=== PATIENT | female | born 1990 | race Caucasian/White ===

== ENCOUNTER 2017-07-09 15:45 | Inpatient (IN) | payer OTHER ==
[2017-07-09] MEDS ORDERED: MISOPROSTOL 200 MCG TAB PR ×2 (16:30→19:30)
[2017-07-09] MEDS ORDERED: CEFAZOLIN 2 GM/50 ML (PMX) 50 ML IV (16:30)
[2017-07-09] MEDS ORDERED: CARBOPROST 250 MCG INJ IM ×2 (16:30→19:30)
[2017-07-09] MEDS ORDERED: OXYTOCIN 30 UNITS/LR 500 ML IV ×4 (16:30→19:30)
[2017-07-09] MEDS ORDERED: METHYLERGONOVINE 0.2 MG INJ IM ×2 (16:30→19:30)
[2017-07-09 16:47] LABS: ADD MAN DIFF? NO
[2017-07-09 16:49] LABS: WHITE BLOOD COUNT 9.3 10^3/ul (4.8-10.8)
[2017-07-09 16:49] LABS: BASOPHILS % 0.3 % (0.0-2.0); EOSINOPHILS # 0.1 10^3/ul (0.0-0.5); EOSINOPHILS % 0.5 % (0.0-7.0); HEMATOCRIT 35.4 % (37.0-47.0); HEMOGLOBIN 12.1 g/dl (12.0-16.0); LYMPHOCYTES # 1.7 10^3/ul (0.8-2.9); LYMPHOCYTES % 18.5 % (15.0-51.0); MEAN CORPUSCULAR HEMOGLOBIN 29.4 pg (29.0-33.0); MEAN CORPUSCULAR HGB CONC 34.2 g/dl (32.0-37.0); MEAN CORPUSCULAR VOLUME 85.9 fl (82.0-101.0); MEAN PLATELET VOLUME 10.8 fl (7.4-10.4); MONOCYTE # 0.5 10^3/ul (0.3-0.9); MONOCYTES % 5.6 % (0.0-11.0); NEUTROPHILS % 74.6 % (39.0-77.0); PLATELET COUNT 253 10^3/UL (140-415); RED BLOOD COUNT 4.12 10^6/ul (4.20-5.40); RED CELL DISTRIBUTION WIDTH 13.9 % (11.5-14.5)
[2017-07-09] MEDS: LACTATED RINGER'S 1,000 ML IV ×2 (17:06→17:55)
[2017-07-09 17:07] LABS: INR 0.93; PARTIAL THROMBOPLASTIN TIME 31.5 Sec (25.0-35.0); PROTIME 12.6 Sec (11.9-14.9)
[2017-07-09 17:46] LABS: HEPATITIS B SURFACE ANTIGEN NEGATIVE (NEGATIVE)
[2017-07-09] MEDS ORDERED: EPHEDrine SULFATE 50 MG/5 ML SYG (18:17)
[2017-07-09] MEDS ORDERED: morphine SULFATE/PF (10 MG/10 ML) INJ (18:17)
[2017-07-09] MEDS ORDERED: METOCLOPRAMIDE 10 MG INJ (18:18)
[2017-07-09] MEDS ORDERED: ONDANSETRON 4 MG INJ (18:18)
[2017-07-09] MEDS ORDERED: OXYTOCIN 10 UNIT INJ (18:18)
[2017-07-09] MEDS ORDERED: MIDAZOLAM 1 MG/ML 2 ML INJ (18:50)
[2017-07-09] MEDS ORDERED: LANOLIN 7 GM TUBE TOP (19:30)
[2017-07-09] MEDS: CEFAZOLIN 2 GM/50 ML (PMX) 50 ML IV (19:30)
[2017-07-09] MEDS ORDERED: OXYCODONE/ACETAMINOPHEN (5/325) TAB PO (19:30)
[2017-07-09] MEDS: OXYTOCIN 30 UNITS/LR 500 ML IV ×2 (19:44→23:09)
[2017-07-09] MEDS ORDERED: morphine 2 MG INJ IV ×2 (20:00)
[2017-07-09] MEDS ORDERED: EPHEDrine SULFATE 50 MG/5 ML SYG IV (20:00)
[2017-07-09] MEDS ORDERED: NALOXONE (0.4 MG/ML) INJ IV (20:00)
[2017-07-09] MEDS ORDERED: ONDANSETRON 4 MG INJ IV (20:00)
[2017-07-09] MEDS ORDERED: DIPHENHYDRAMINE 50 MG INJ IV (20:00)
[2017-07-09] MEDS: morphine SULFATE/PF (10 MG/10 ML) INJ SPINAL (20:40)
[2017-07-09] MEDS: SENNA/DOCUSATE NA (8.6MG/50MG) TAB PO (21:00)
[2017-07-10] MEDS: LACTATED RINGER'S 1,000 ML IV* ×3 (03:19→18:00)
[2017-07-10] MEDS: CEFAZOLIN 2 GM/50 ML (PMX) 50 ML IV ×2 (03:21→11:25)
[2017-07-10] MEDS: IBUPROFEN 600 MG TAB PO ×5 (05:51→23:17)
[2017-07-10] MEDS: SENNA/DOCUSATE NA (8.6MG/50MG) TAB PO ×2 (08:57→21:08)
[2017-07-10] MEDS: KETOROLAC 30 MG INJ IV ×2 (08:59→15:37)
[2017-07-10 09:48] LABS: ADD MAN DIFF? NO
[2017-07-10 09:59] LABS: WHITE BLOOD COUNT 10.3 10^3/ul (4.8-10.8)
[2017-07-10 09:59] LABS: BASOPHILS % 0.3 % (0.0-2.0); EOSINOPHILS # 0.1 10^3/ul (0.0-0.5); EOSINOPHILS % 0.5 % (0.0-7.0); HEMATOCRIT 33.7 % (37.0-47.0); HEMOGLOBIN 11.2 g/dl (12.0-16.0); LYMPHOCYTES # 1.7 10^3/ul (0.8-2.9); LYMPHOCYTES % 16.6 % (15.0-51.0); MEAN CORPUSCULAR HGB CONC 33.2 g/dl (32.0-37.0); MEAN CORPUSCULAR VOLUME 87.3 fl (82.0-101.0); MEAN PLATELET VOLUME 11.1 fl (7.4-10.4); MONOCYTE # 0.7 10^3/ul (0.3-0.9); MONOCYTES % 6.5 % (0.0-11.0); NEUTROPHIL # 7.8 10^3/ul (1.6-7.5); NEUTROPHILS % 75.6 % (39.0-77.0); PLATELET COUNT 212 10^3/UL (140-415); RED BLOOD COUNT 3.86 10^6/ul (4.20-5.40); RED CELL DISTRIBUTION WIDTH 14.2 % (11.5-14.5)
[2017-07-10] MEDS: CEFAZOLIN 2 GM/50 ML (PMX) 50 ML IVPB (18:12)
[2017-07-10] MEDS: OXYCODONE/ACETAMINOPHEN (5/325) TAB PO (19:07)
[2017-07-10 22:06] LABS: RAPID PLASMA REAGIN NONREACTIVE (NR)
[2017-07-11] MEDS: OXYCODONE/ACETAMINOPHEN (5/325) TAB PO ×4 (04:06→22:03)
[2017-07-11] MEDS: IBUPROFEN 600 MG TAB PO ×4 (05:38→23:22)
[2017-07-11] MEDS: SENNA/DOCUSATE NA (8.6MG/50MG) TAB PO ×2 (07:56→20:13)
[2017-07-11] MEDS: INFLUENZA VIRUS VACCINE 0.5 ML (DISPENSING) IM* (15:49)
[2017-07-11] MEDS: NA PHOSPHATE/BIPHOS 133 ML ENEMA PR (16:06)
[2017-07-12] MEDS: OXYCODONE/ACETAMINOPHEN (5/325) TAB PO (04:44)
[2017-07-12] MEDS: IBUPROFEN 600 MG TAB PO ×2 (05:43→11:59)
[2017-07-12] MEDS: SENNA/DOCUSATE NA (8.6MG/50MG) TAB PO (08:36)
== END 2017-07-12 13:15 | disposition home or self-care (01) | DRG 766 ==
LOC: L-D 15:45 → PP1 22:48
PROVIDERS: Obstetrics & Gynecology
PROC: 10D00Z1 Extraction of Products of Conception, Low, Open Approach (ICD-10-PCS; principal; 2017-07-11)
PROC: 3E033VJ Introduction of Other Hormone into Peripheral Vein, Percutaneous Approach (ICD-10-PCS; 2017-07-11)
DX: O34.211 Maternal care for low transverse scar from previous cesarean delivery (principal); E66.01 Morbid (severe) obesity due to excess calories; O99.214 Obesity complicating childbirth; Z68.34 Body mass index [BMI] 34.0-34.9, adult; Z3A.39 39 weeks gestation of pregnancy; Z37.0 Single live birth
CPT/HCPCS: 85025; 85610; 85730; 86592; 86850; 86900; 86901; 87340; 90686; 94760; 99464